=== PATIENT | female | born 1965 | race Caucasian/White ===

== ENCOUNTER 2021-01-05 05:13 | Day surgery (SDC) | payer OTHER ==
[~2021-01-05 05:13] MED LIST: CIPRO500 MG PO; PERCOCET 5-3251 EACH PO; SERTRALINE HCL50 MG PO; SLEEP AID25 MG PO; VITAMIN B COMP1 EAC1 PO; VITAMIN D310 MC1 PO
[2021-01-05 06:47] LABS: BILIRUBIN NEGATIVE (NEGATIVE); BLOOD NEGATIVE Ery/uL (NEGATIVE); CLARITY CLEAR (CLEAR); COLOR YELLOW (YELLOW); GLUCOSE (U) NORMAL (NORMAL); LEUKOCYTES 3+ Leu/uL (NEGATIVE); NITRITE NEGATIVE (NEGATIVE); PROTEIN NEGATIVE (NEGATIVE); UROBILINOGEN 0.2 mg/dL (0.2-1.0)
[2021-01-05 06:53] LABS: BACTERIA TRACE
[2021-01-05] MEDS ORDERED: PERCOCET 7.5/321 TAB PO (08:19)
[2021-01-05] MEDS ORDERED: 3IN1 COMMODE XX (13:20)
[2021-01-05] MEDS ORDERED: ULTRA-LIGHT RO1 EACH XX (13:20)
[2021-01-06] MEDS ORDERED: CELEXA20 MG PO (01:55)
[2021-01-06] MEDS ORDERED: DETROL LA4 MG PO (01:56)
[2021-01-06] MEDS ORDERED: PRILOSEC20 MG PO (01:57)
[2021-01-06] MEDS ORDERED: LIPITOR 10MG TA10 MG PO (01:57)
[2021-01-06] MEDS ORDERED: SYNTHROID50 MCG PO (01:58)
[2021-01-06] MEDS ORDERED: FOLIC ACID1 MG PO (01:58)
[2021-01-06] MEDS ORDERED: EFFEXOR-XR 75 M75 MG PO (01:58)
[2021-01-06 05:42] LABS: BASOPHIL 0.3 % (0-2); EOSINOPHIL 0.6 % (0-5); HCT 32.2 % (37.0-47.0); HGB 10.6 g/dl (12.5-16.0); LYMPHOCYTE 24.7 % (15-48); MCH 30.1 pg (25.0-31.0); MCHC 32.9 g/dL (32.0-36.0); MCV 91.5 fL (78.0-100.0); MONOCYTE 12.6 % (0-12); NEUTROPHIL 60.8 % (41-80); NRBC 0; PLT 215 K/uL (150-400); RBC 3.52 M/uL (4.20-5.40); RDW 13.6 % (11.5-14.0); WBC 13.4 K/uL (4.0-10.5)
[2021-01-06 06:45] LABS: BUN/CREAT RATIO (CALC) 14.5 RATIO; CREATININE 0.83 mg/dL (0.51-0.95)
[2021-01-06] MEDS ORDERED: VIBRAMYCIN100 MG PO (10:35)
[2021-01-06] MEDS ORDERED: XARELTO10 MG PO (10:35)
[2021-01-06] MEDS ORDERED: FEOSOL325 MG PO (10:35)
[2021-01-06] MEDS ORDERED: METRONIDAZOLE500 MG PO (10:35)
[2021-01-06] MEDS ORDERED: ASPIRIN325 MG PO (11:37)
[2021-01-08 19:10] LABS: CHLAMYDIA TRACHOMATIS, NAA Negative (Negative); NEISSERIA GONORRHOEAE, NAA Negative (Negative)
== END 2021-01-06 12:18 | disposition home or self-care (01) ==
LOC: FAS 05:13 → FMS 05:13 → FAS 07:00 → FMS 08:54 → FAS 01-06 12:18
PROVIDERS: Legal Medicine; Nurse Practitioner Adult Health
DX: M17.12 Unilateral primary osteoarthritis, left knee (principal); I10 Essential (primary) hypertension; A59.9 Trichomoniasis, unspecified; F41.9 Anxiety disorder, unspecified; F17.210 Nicotine dependence, cigarettes, uncomplicated; Z98.890 Other specified postprocedural states; Z88.8 Allergy status to other drugs, medicaments and biological substances; Z88.1 Allergy status to other antibiotic agents; Z88.6 Allergy status to analgesic agent; Z90.710 Acquired absence of both cervix and uterus
CPT/HCPCS: 36415; 73560; 80048; 81001; 85025; 86850; 86900; 86901; 87491; 87591; 94010; 94760; 97110; 97162; 97166; 97530-GP; 97535; C1713; C1766; C1776; J0171; J0696; J0697; J1100; J1170; J1885; J2001; J2250; J2405; J2704; J2795; J3010; J7120